=== PATIENT | male | born 1950 ===

== ENCOUNTER → 2018-02-21 | Outpatient (REF) | payer MEDICARE, OTHER ==
[~2018-02-21] MED LIST: KET10 PO; LOR5/325 PO; TAMS0.4C25 PO
== END ==
LOC: ZZSENDIN 11:43
PROVIDERS: ATTEND Family Medicine
DX: N39.0 Urinary tract infection, site not specified (principal); R35.0 Frequency of micturition; B96.89 Other specified bacterial agents as the cause of diseases classified elsewhere
CPT/HCPCS: 87077; 87088; 87186